=== PATIENT | male | born 1960 | race Caucasian/White ===

== ENCOUNTER 2017-10-02 08:14 | Emergency (ER) | payer OTHER ==
[2017-10-02 08:41] VITALS: BP 145/82
--- NOTE | 2017-10-02 08:56 | UC ---
Upper Extremity HPI - HPI Summary HPI Summary: Right hand injury at work yesterday where a metal bar hit his hand. There is pain and swelling right posterior hand around 4th and 5th metacarpal. - History of Current Complaint Chief Complaint: UCUpperExtremity Stated Complaint: RIGHT HAND INJURY (WC) Time Seen by Provider: 10/02/17 08:47 Hx Obtained From: Patient Onset/Duration: Sudden Onset, Lasting Days Severity Initially: Moderate Severity Currently: Moderate Pain Intensity: 5 Location Of Pain: Is Discrete @ Character: Sharp, Aching Aggravating Factor(s): Movement, Lifting, Flexion, Extension, Abduction, Adduction Alleviating Factor(s): Rest Associated Signs And Symptoms: Positive: Swelling, Bruising - Allergies/Home Medications Allergies/Adverse Reactions: Allergies Allergy/AdvReac Type Severity Reaction Status Date / Time diazepam Allergy Agitation Verified 10/02/17 08:33 latex Allergy Rash Verified 10/02/17 08:33 Home Medications: Home Medications Aspirin 81 mg CHEW TAB* [Aspirin Low Dose TAB*] 81 mg PO DAILY 10/02/17 [ History Confirmed 10/02/17] Ciprofloxacin TAB* [Cipro 500 MG TAB*] 500 mg PO BID 10/02/17 [History Confirmed 10/02/17] Levothyroxine TAB* [Synthroid TAB*] 50 mcg PO DAILY 10/02/17 [History Confirmed 10/02/17] Omeprazole CAP* [Prilosec CAP* 20 MG] 20 mg PO DAILY 10/02/17 [History Confirmed 10/02/17] Venlafaxine HCl [Effexor XR-] 112 mg PO DAILY 10/02/17 [History Confirmed ] traZODone TAB* [Desyrel TAB*] 25 mg PO BEDTIME 10/02/17 [History Confirmed 10/02] PMH/Surg Hx/FS Hx/Imm Hx Previously Healthy: No - no prior right hand fracture. - Surgical History Surgical History: Yes Surgery Procedure, Year, and Place: Herniorrhaphies. Bilateral Orchiopexy. aortic valve replacement - Family History Known Family History: Positive: Other - NO hand related family history. - Social History Occupation: Employed Part-time Alcohol Use: Rare Substance Use Type: None Smoking Status (MU): Never Smoked Tobacco Household Exposure Type: Cigarettes - Immunization History Most Recent Tetanus Shot: "within the last ten years" Review of Systems Musculoskeletal: Arthralgia, Edema, Myalgia All Other Systems Reviewed And Are Negative: Yes Physical Exam Triage Information Reviewed: Yes Appearance: Well-Appearing, No Pain Distress, Well-Nourished Vital Signs: Initial Vital Signs Temp 98.9 F 10/02/17 08:36 Pulse 67 10/02/17 08:36 Resp 20 10/02/17 08:36 BP 145/82 10/02/17 08:36 Pulse Ox 99 10/02/17 08:36 Vital Signs Reviewed: Yes Eyes: Positive: Conjunctiva Clear ENT: Positive: Normal ENT inspection, Pharynx normal Neck: Positive: Supple, Nontender, No Lymphadenopathy Respiratory: Negative: Respiratory distress Cardiovascular: Positive: Brisk Capillary Refill Abdomen Description: Negative: Distended Musculoskeletal Exam: Other - right dorsum of the hand swelling and bruising and tenderness. No wrist tenderness. Neurological: Positive: Alert, Muscle Tone Normal. Negative: Fatigued Skin Exam: Other - bruising over the traumatic area. Skin: Negative: rashes Procedures - Splinting Hand-Made Type: orthoglass Splint: ulnar gutter. Pre-Proc Neuro Vasc Exam: normal Post-Proc Neuro Vasc Exam: normal Diagnostics - Radiology No standard instances Xray Interpretation: Positive (See Comments) Radiology Interpretation Completed By: Radiologist Upper Extremity Course/Dx - Differential Dx/Diagnosis Provider Diagnoses: right 4th metacarpal spiral fracture Discharge - Sign-Out/Discharge Documenting (check all that apply): Discharge - Discharge Plan Condition: Good Disposition: HOME Patient Education Materials: Hand Fracture (ED) Forms: *Work Release Referrals: Abdiaziz Wilhelm MD [Medical Doctor] - Citlalli STYLES,Kb Sánchez [Primary Care Provider] - - Billing Disposition and Condition Condition: GOOD Disposition: HOME
--- NOTE | 2017-10-02 09:09 | RAD ---
Indication: Right hand injury, 4 views of the right hand demonstrates a spiral fracture through the midshaft of the fourth metacarpal. No other bone or joint abnormality is noted. IMPRESSION: Spiral comminuted fracture fourth metacarpal.
== END 2017-10-02 09:27 | disposition home or self-care (01) ==
LOC: UCCORT 08:14
DX: S62.324A Displaced fracture of shaft of fourth metacarpal bone, right hand, initial encounter for closed fracture (principal); W22.8XXA Striking against or struck by other objects, initial encounter; Y92.9 Unspecified place or not applicable; Z88.8 Allergy status to other drugs, medicaments and biological substances
CPT/HCPCS: 26600; 99201; G0463